=== PATIENT | female | born 1990 | race Caucasian/White ===

== ENCOUNTER 2016-08-22 20:57 | Emergency (ER) | payer OTHER ==
[~2016-08-22] VITALS: Ht 160 cm; Wt 114.0 kg
[~2016-08-22 20:57] MED LIST: BEN50 PO; CALAMINE TOP; HYDR-3011 PO; HYDR-3498 PO; IBUP-1542 PO; KENC1 TOP; OFLO5DRO7 RIGHT EAR; PRED50TA PO
[2016-08-22 21:06] VITALS: Ht 160 cm; Wt 114.0 kg
[2016-08-22] MEDS ORDERED: LIDOCAINE/MYLANTA 40 ML BTL PO STA (23:24)
[2016-08-22] MEDS ORDERED: FAMOTIDINE 20 MG TAB PO ONE (23:30)
[2016-08-23 00:30] LABS: ALBUMIN 4.7 g/dl (3.3-4.9)
[2016-08-23 00:31] LABS: POTASSIUM 4.2 mmol/L (3.5-5.1)
[2016-08-23 00:32] LABS: ADD UMIC NO; URINE BILIRUBIN (Dip) NEGATIVE (NEGATIVE); URINE BLOOD (Dip) NEGATIVE (NEGATIVE); URINE COLOR LT. YELLOW (YELLOW); URINE GLUCOSE (Dip) NEGATIVE (NEGATIVE); URINE KETONES (Dip) NEGATIVE (NEGATIVE); URINE LEUKOCYTE ESTERASE (Dip) NEGATIVE (NEGATIVE); URINE NITRITE (Dip) NEGATIVE (NEGATIVE); URINE TOTAL PROTEIN (Dip) NEGATIVE (NEGATIVE); URINE UROBILINOGEN (Dip) 0.2 E.U./dL (0.1-1.0)
[2016-08-23 00:33] LABS: ALBUMIN/GLOBULIN RATIO 1.3; BILIRUBIN,INDIRECT 0.3 mg/dl (0-1.1); BILIRUBIN,TOTAL 0.3 mg/dl (0.2-1.3); CREATININE 0.76 mg/dl (0.44-1.00); TOTAL PROTEIN 8.3 g/dl (6.1-8.1)
[2016-08-23 00:34] LABS: CALCIUM 9.3 mg/dl (8.4-10.2)
--- NOTE | 2016-08-23 01:34 | RADRPT ---
PROCEDURE: US gallbladder . CLINICAL INDICATION: Abdominal Pain TECHNIQUE: Multiple real-time images were acquired of the patient's abdomen utilizing a high resol ution transducer. COMPARISON: None FINDINGS: No gallstones are identified within the gallbladder. No gallbladder sludge. There is no pericholecystic fluid or gallbladder wall thickening. Gallbladder wall measures 3 mm. The common bile duct measures 3 mm in maximal dimension. No free fluid is identified. Right kidney measures up to 10 cm, and there is no evident renal mass, hydronephrosis retained calculus. Pancreas is not well seen secondary to overlying bowel gas. Liver measures 167 mm and there is fatty infiltration. IMPRESSION: 1. Fatty infiltration of the liver. 2. Otherwise, no acute process in the right upper quadrant. RPTAT: UU Physician Bonnie Date Time Electronically viewed and signed by Physician Bonnie on 08/23/2016 01:34 RS/
--- NOTE | 2016-08-23 01:48 | ERD ---
ER Documentation Chief Complaint Date/Time DATE: 08/23/16 TIME: 01:44 Chief Complaint diffuse abd pain x 2 days HPI The patient is a 25-year-old female here for epigastric pain and churning since she ate at [id number] 2 days ago. She states that she has mild nausea intermittently today. No vomiting. She states that she is beginning to get sick and believes she caught it from her daughter. She states that she is starting to get body aches and subjective fever. She denies chest pain, shortness of breath, difficulty breathing, dizziness, lightheadedness, change in mentation, change in gait, visual changes, international travel, smoking, vomiting, diarrhea, constipation. Her last menstrual period was 08/15/16. ROS All systems reviewed and are negative except as per history of present illness. Medications Home Meds Active Scripts Famotidine* (Pepcid*) 20 Mg Tablet, 20 MG PO BID for 4 Days, TAB Prov:NOHEMY FRIEDMAN NP 08/23/16 Acetaminophen* (Tylenol*) 325 Mg Tablet, 2 TAB PO Q6 Y for PAIN AND OR ELEVATED TEMP, #20 TAB Prov:NOHEMY FRIEDMAN NP 08/23/16 Ibuprofen* (Motrin*) 600 Mg Tab, 600 MG PO Q6, #20 TAB Prov:TRACY LYNCH PA-C 02/14/16 Hydrocodone Bit-Acetaminophen* ([place]*) 5-325 Mg Tab, 1 TAB PO Q6 Y for PAIN, # 10 TAB Prov:TRAYC LYNCH PA-C 02/14/16 Triamcinolone Acetonide* (Kenalog*) 0.1%-15GM Cr, 1 APPLIC TOP BID, #1 TUB Prov:OUMAR FLORES NP 12/19/15 Hydroxyzine Hcl* (Hydroxyzine Hcl*) 25 Mg Tablet, 25 MG PO Q8H Y for ITCHING, # 30 TAB Prov:OUMAR FLORES FURNITURE SERVICER 12/19/15 Prednisone* (Prednisone*) 50 Mg Tablet, 50 MG PO DAILY, #5 TAB Prov:OUMAR FLORES NP 12/19/15 Calamine* (Calamine*) 120 Ml Lotion, 1 APPLIC TOP Q4H for RASH, #1 EA Prov:PEBBLES THOMAS FURNITURE SERVICER 12/10/15 Diphenhydramine Hcl* (Benadryl*) 50 Mg Cap, 50 MG PO Q6H Y for ITCHING/RASH, # 30 CAP Prov:PEBBLES THOMAS. FURNITURE SERVICER 12/10/15 Ofloxacin* (Ofloxacin*) 0.3%-10 Ml Otic Drops, 10 DROP RIGHT EAR BID, #1 EA Prov:FUNMI BOYD PA-C 03/23/15 Allergies Allergies: Coded Allergies: No Known Allergy (Verified , 12/10/15) PMhx/Soc Medical and Surgical Hx: pt denies Medical Hx, pt denies Surgical Hx History of Surgery: No Anesthesia Reaction: No Hx Neurological Disorder: No Hx Respiratory Disorders: No Hx Cardiac Disorders: No Hx Psychiatric Problems: No Hx Miscellaneous Medical Probl: No Hx Alcohol Use: No Hx Substance Use: No Hx Tobacco Use: No Smoking Status: Never smoker Physical Exam Vitals Vital Signs Date Time Temp Pulse Resp B/P Pulse Ox O2 Delivery O2 Flow Rate FiO2 08/22/16 21:06 100.4 99 20 136/83 97 Physical Exam INITIAL VITAL SIGNS: Reviewed by me, low-grade fever 100.4 GENERAL: Alert. Well developed and well nourished. No acute distress. Nontoxic appearing. HEAD: Head is normocephalic. Atraumatic. EYES: EOMI. PERRL. No scleral icterus. No conjunctival injection. No clear or purulent drainage. ENT: External ears, nose, and mouth normal. Tympanic membranes without erythema , bulging, or effusion. Throat clear and without erythema or exudates. Tonsils + 2 and without erythema or exudates. Nasal passages patent and without rhinorrhea. Moist mucous membranes. NECK: Supple. Full range of motion. Trachea midline. No lymphadenopathy. No meningismus. RESPIRATORY: No tachypnea. Clear to auscultation bilaterally. No wheezing, rales , or rhonchi. CV: Regular rate and rhythm. No murmurs, rubs, or gallops ABDOMEN: Soft, non-distended, non-tender. No guarding. No rebound. No masses. Bowel sounds normal in all quadrants. BACK: No CVA tenderness. Full ROM. EXTREMITIES: No obvious deformity. No clubbing or cyanosis. No edema. SKIN: Warm and dry. No diaphoresis. No obvious rashes or lesions. NEUROLOGIC: Alert and oriented x 3. Appropriate. Face is symmetric. Speech is normal. Moves all extremities equally. Result Diagram: 08/22/160 08/22/160 Results 24 hrs Laboratory Tests Test 08/22/16 23:40 08/22/16 23:50 08/23/16 00:05 Alanine Aminotransferase (ALT/SGPT) 31IU/L Albumin 4.7g/dl Albumin/Globulin Ratio 1.30 Alkaline Phosphatase 95IU/L Anion Gap 17 Aspartate Amino Transf (AST/SGOT) 29IU/L Basophils # 0.010^3/ul Basophils % 0.2% Blood Urea Nitrogen 11mg/dl Calcium Level 9.3mg/dl Carbon Dioxide Level 28mmol/L Chloride Level 99mmol/L Creatinine 0.76mg/dl Direct Bilirubin 0.00mg/dl Eosinophils # 0.110^3/ul Eosinophils % 1.7% Globulin 3.60g/dl Glucose Level 94mg/dl Hematocrit 41.7% Hemoglobin 14.4g/dl Indirect Bilirubin 0.3mg/dl Lipase 36U/L Lymphocytes # 1.310^3/ul Lymphocytes % 20.2% Mean Corpuscular Hemoglobin 30.6pg Mean Corpuscular Hemoglobin Concent 34.5g/dl Mean Corpuscular Volume 88.5fl Mean Platelet Volume 11.1fl Monocytes # 0.410^3/ul Monocytes % 6.2% Neutrophils # 4.510^3/ul Neutrophils % 71.2% Nucleated Red Blood Cells # 0.010^3/ul Nucleated Red Blood Cells % 0.0/100WBC Platelet Count 12372^3/UL Potassium Level 4.2mmol/L Red Blood Count 4.7110^6/ul Red Cell Distribution Width 12.8% Sodium Level 140mmol/L Total Bilirubin 0.3mg/dl Total Protein 8.3g/dl White Blood Count 6.310^3/ul Urine Bilirubin NEGATIVE Urine Clarity CLEAR Urine Color LT. YELLOW Urine Glucose NEGATIVE% Urine Hemoglobin NEGATIVE Urine Ketones NEGATIVE Urine Leukocyte Esterase NEGATIVE Urine Nitrite NEGATIVE Urine Specific [place] 1.010 Urine Total Protein NEGATIVE Urine Urobilinogen 0.2 E.U./dL Urine pH 6.0 Urine Test NEGATIVE Current Medications Medications (Trade) Dose Ordered Sig/Alesia Route PRN Reason Start Time Stop Time Status Last Admin Dose Admin Famotidine (Pepcid) 20 mg ONCE ONCE PO 08/22/16 23:30 08/22/16 23:47 DC 08/23/16 00:03 Miscellaneous Medication (Gi Cocktail (2)) 40 ml ONCE STAT PO 08/22/16 23:24 08/22/16 23:47 DC 08/23/16 00:03 [place] [id number] Radiology Main Line: [phone] DIAGNOSTIC IMAGING REPORT Patient: JAYLIN FOFANA : 1990 Age: 25 Sex: F MR #: [id number] DOS: 08/23/16 2324 Ordering MD: NOHEMY FRIEDMAN NP Location: [facility] Room/Bed: PROCEDURE: US gallbladder . CLINICAL INDICATION: Abdominal Pain TECHNIQUE: Multiple real-time images were acquired of the patient's abdomen utilizing a high resolution transducer. COMPARISON: None FINDINGS: No gallstones are identified within the gallbladder. No gallbladder sludge. There is no pericholecystic fluid or gallbladder wall thickening. Gallbladder wall measures 3 mm. The common bile duct measures 3 mm in maximal dimension. No free fluid is identified. Right kidney measures up to 10 cm, and there is no evident renal mass, hydronephrosis retained calculus. Pancreas is not well seen secondary to overlying bowel gas. Liver measures 167 mm and there is fatty infiltration. IMPRESSION: 1. Fatty infiltration of the liver. 2. Otherwise, no acute process in the right upper quadrant. RPTAT: UU Physician Bonnie Date Time Electronically viewed and signed by Physician Bonnie on 08/23/2016 01:34 RS/ CC: NOHEMY FRIEDAMN NP Procedures/MDM Nursing Notes Reviewed Previous Medical Records requested via [employer]. EMERGENCY DEPARTMENT COURSE / MEDICAL DECISION MAKING: The patient comes to the ED secondary to epigastric pain and churning 2 days, and low-grade subjective fever and body aches since today. Differential diagnosis upon initial evaluation includes but is not limited to: gastritis, gastroenteritis, ileus, small bowel obstruction, constipation, pancreatitis, appendicitis, cholecystitis, urinary tract infection, diverticulitis, biliary colic, renal colic, AAA, GERD, mesenteric ischemia, pancreatitis, pneumonia, sepsis, meningitis, viral syndrome, and others The case was discussed with supervising physician Dr. Doyle. It was decided to order CBC, CMP, lipase, and gallbladder ultrasound, UA. The patient was treated with Mylanta/viscous lidocaine, Pepcid, Tylenol. On reassessment, the patient states that her abdominal pain has completely resolved along with her body aches. Her repeat physical exam was benign. Bowel sounds normal in all quadrants. Soft, nontender, nondistended, no guarding, no rebound, negative Euceda sign, no McBurney's point tenderness. Gallbladder ultrasound per radiology report: IMPRESSION: 1. Fatty infiltration of the liver. 2. Otherwise, no acute process in the right upper quadrant. CBC: no e/o of systemic infection or severe anemia. CMP: no e/o severe acidosis, alkalosis, renal failure, diabetic ketoacidosis, liver disease Lipase: no e/o pancreatitis Urine: no e/o acute infection or hematuria Urine : Negative Otherwise within normal limits, unremarkable, or as documented above. Again, reexamination the patient stated that she feels much better and wishes to be discharged home. Her repeat physical exam was benign. There is no evidence for acute surgical abdomen, sepsis, pneumonia, meningitis, or any other serious cause of her symptoms. As such, I believe she is an appropriate candidate for outpatient management and follow-up at this time. I discussed the patient's disposition and plan of care with Dr. Doyle and he agrees. Final impression: Viral syndrome Epigastric pain Based on patient's history of present illness and physical examination the decision was made to discharge. The patient was re-evaluated after ED treatment and stabilizing measures, and symptoms have improved. There is no evidence of life threatening injuries or illnesses at this time. On re-examination, patient resting in no distress, stable vital signs, reports feeling better and safe for discharge with outpatient follow up here in 8-12 hours for recheck if not completely better. Otherwise, she was given the option of following up with her primary care doctor in 1-2 days. Patient given return precautions. She verbalized understanding and agreed to return precautions. She agreed with plan of care. Patient's blood pressure was elevated but appears stable without evidence of hypertensive emergency, end organ damage, chest pain or shortness of breath. The patient was counseled about the risks of untreated hypertension and urged to pursue outpatient monitoring and therapy in 2-3 days with their primary care physician. Prescriptions Pepcid Tylenol Departure Diagnosis: Primary Impression: Epigastric pain Additional Impression: Viral syndrome Condition: Stable NOHEMY FRIEDMAN NP Aug 23, 2016 01:48
[2016-08-23 02:12] LABS: HEMATOCRIT 41.7 % (37.0-47.0); HEMOGLOBIN 14.4 g/dl (12.0-16.0); MEAN CORPUSCULAR VOLUME 88.5 fl (82.0-101.0); RED BLOOD COUNT 4.71 10^6/ul (4.20-5.40); WHITE BLOOD COUNT 6.3 10^3/ul (4.8-10.8)
[2016-08-23 02:13] LABS: BASOPHILS % 0.2 % (0.0-2.0); EOSINOPHILS # 0.1 10^3/ul (0.0-0.5); EOSINOPHILS % 1.7 % (0.0-7.0); LYMPHOCYTES # 1.3 10^3/ul (0.8-2.9); LYMPHOCYTES % 20.2 % (15.0-51.0); MEAN CORPUSCULAR HEMOGLOBIN 30.6 pg (29.0-33.0); MEAN CORPUSCULAR HGB CONC 34.5 g/dl (32.0-37.0); MEAN PLATELET VOLUME 11.1 fl (7.4-10.4); MONOCYTE # 0.4 10^3/ul (0.3-0.9); MONOCYTES % 6.2 % (0.0-11.0); NEUTROPHIL # 4.5 10^3/ul (1.6-7.5); NEUTROPHILS % 71.2 % (39.0-77.0); PLATELET COUNT 233 10^3/UL (140-440); RED CELL DISTRIBUTION WIDTH 12.8 % (11.5-14.5)
[2016-08-23] MEDS ORDERED: ACET325T33 PO (02:13)
[2016-08-23] MEDS ORDERED: FAMO-18 PO (02:13)
[2016-08-23 02:38] VITALS: BP 131/81; PULSE 98; RESP 18; TEMP 98.9
== END 2016-08-23 02:39 | disposition home or self-care (01) ==
LOC: FTE 20:57
DX: R10.13 Epigastric pain (principal); B34.9 Viral infection, unspecified
CPT/HCPCS: 36415; 76705; 80053; 81003; 83690; 84703; 85025; Z7502; Z7610

== ENCOUNTER 2017-04-19 11:13 | Emergency (ER) | payer OTHER ==
[~2017-04-19] VITALS: Ht 162.6 cm; Wt 118.5 kg
[~2017-04-19 11:13] MED LIST changes: +ACET325T33 PO; +FAMO-96 PO; -KENC1 TOP; +TRIA15CR55 TOP
[2017-04-19 11:16] VITALS: Ht 162.6 cm; Wt 118.5 kg
[2017-04-19] MEDS ORDERED: KETOROLAC 60 MG INJ IM STA (11:41)
[2017-04-19] MEDS ORDERED: IBUP800T25 PO (12:25)
--- NOTE | 2017-04-19 14:08 | ERD ---
ER Documentation Chief Complaint Date/Time DATE: 04/19/17 TIME: 13:35 Chief Complaint lower back pain & conspitation x3 days, denies painful urination, HPI 6-year-old female complaining of lower back pain 3 days. Patient stated that the pain initially started on the left lower back. She was bending over to potato picker her shoes, when she strained her back she felt a sharp shooting pain on her left side. She went to chiropractor the next day to get a massage. After that she reports her right lower back pain. She has used ibuprofen at home for pain without relief. Last dose was yesterday at 4 PM. Denies fall. Denies heavy lifting. Denies saddle paresthesia. Denies bowel bladder dysfunction. Denies radiation of the pain. ROS All systems reviewed and are negative except as per history of present illness. Medications Home Meds Active Scripts Ibuprofen* (Motrin*) 800 Mg Tab, 800 MG PO Q6H Y for PAIN AND OR ELEVATED TEMP, #30 TAB Prov:PEBBLES THOMAS TESTING SPECIALIST 04/19/17 Famotidine* (Pepcid*) 20 Mg Tablet, 20 MG PO BID for 4 Days, TAB Prov:NOHEMY FRIEDMAN NP 08/23/16 Acetaminophen* (Tylenol*) 325 Mg Tablet, 2 TAB PO Q6 Y for PAIN AND OR ELEVATED TEMP, #20 TAB Prov:NOHEMY FRIEDMAN NP 08/23/16 Ibuprofen* (Motrin*) 600 Mg Tab, 600 MG PO Q6, #20 TAB Prov:TRACY LYNCH PA-C 02/14/16 Hydrocodone Bit-Acetaminophen* ([place]*) 5-325 Mg Tab, 1 TAB PO Q6 Y for PAIN, # 10 TAB Prov:TRACY LYNCH PA-C 02/14/16 Triamcinolone Acetonide* (Kenalog*) 0.1%-15GM Cr, 1 APPLIC TOP BID, #1 TUB Prov:OUMAR FLORES TESTING SPECIALIST 12/19/15 Hydroxyzine Hcl* (Hydroxyzine Hcl*) 25 Mg Tablet, 25 MG PO Q8H Y for ITCHING, # 30 TAB Prov:OUMAR FLORES NP 12/19/15 Prednisone* (Prednisone*) 50 Mg Tablet, 50 MG PO DAILY, #5 TAB Prov:OUMAR FLORESElkin TESTING SPECIALIST 12/19/15 Calamine* (Calamine*) 120 Ml Lotion, 1 APPLIC TOP Q4H for RASH, #1 EA Prov:PEBBLES THOMAS. TESTING SPECIALIST 12/10/15 Diphenhydramine Hcl* (Benadryl*) 50 Mg Cap, 50 MG PO Q6H Y for ITCHING/RASH, # 30 CAP Prov:MARTHA,PEBBLES X. TESTING SPECIALIST 12/10/15 Ofloxacin* (Ofloxacin*) 0.3%-10 Ml Otic Drops, 10 DROP RIGHT EAR BID, #1 EA Prov:FUNMI BOYD PA-C 03/23/15 Allergies Allergies: Coded Allergies: No Known Allergy (Verified , 12/10/15) PMhx/Soc Medical and Surgical Hx: pt denies Medical Hx History of Surgery: No Anesthesia Reaction: No Hx Neurological Disorder: No Hx Respiratory Disorders: No Hx Cardiac Disorders: No Hx Psychiatric Problems: No Hx Miscellaneous Medical Probl: No Hx Alcohol Use: No Hx Substance Use: No Hx Tobacco Use: No Smoking Status: Never smoker Physical Exam Vitals Vital Signs Date Time Temp Pulse Resp B/P Pulse Ox O2 Delivery O2 Flow Rate FiO2 04/19/17 11:16 98.4 90 20 131/72 98 Physical Exam General: Well-developed, well-nourished, conscious and coherent, in no distress Skin: Warm and dry without rash, good texture and turgor Head: Normocephalic without evidence of trauma Eyes: Sclera and conjunctivae normal; pupils equal, round, and reactive to light; extraocular movements are intact Chest: Normal AP diameter. Good expansion without retractions. Nontender. Lungs are clear to auscultate bilaterally with good tidal volume Heart: Regular rate and rhythm. No murmur, rub, or gallops heard Abdomen: Soft and nontender without masses, guarding, or rebound. Bowel sounds are active. No hepatosplenomegaly Back: Without spinal or CVA tenderness. No spasm tenderness noted bilaterally at lower thoracic/upper lumbar region. Extremities: Full range of motion. Good strength bilaterally. No clubbing, cyanosis, or edema. Peripheral pulses are intact. Sensation intact Neuro: Alert and oriented 4, GCS 15. Cranial nerves grossly intact. Motor and sensory exams nonfocal. Moves all extremities. Speech clear. Gait normal Results 24 hrs Current Medications Medications (Trade) Dose Ordered Sig/Alesia Route PRN Reason Start Time Stop Time Status Last Admin Dose Admin Ketorolac Tromethamine (Toradol) 60 mg ONCE STAT IM 04/19/17 11:41 04/19/17 11:42 DC 04/19/17 11:55 Procedures/MDM 26-year-old female presented ED with bilateral back pain. Patient does not have any midline spinal tenderness. I doubt spinal fracture, subluxation, or disc herniation. I doubt spinal epidural abscess, cauda equina syndrome. She will likely had a muscle strain with subsequent muscle spasm of the back. Toradol given to the patient in the ED. Patient reports pain relief after Toradol. Patient appears well, stable for discharge and outpatient management. Medical decision making shared with patient and family. Education provided to patient and family. Patient and family expressed understanding of the plan. Medications on discharge: Ibuprofen. Follow-up: Primary care provider in 2-3 days or return to ED if worse. Disclaimer: Inadvertent spelling and grammatical errors are likely due to EHR/ dictation software use and do not reflect on the overall quality of patient care. Also, please note that the electronic time recorded on this note does not necessarily reflect the actual time of the patient encounter. Departure Diagnosis: Primary Impression: Back spasm Condition: Stable Patient Instructions: Back Sprain/Strain Additional Instructions: Call your primary care doctor TOMORROW for an appointment during the next 2-3 days.See the doctor sooner or return here if your condition worsens before your appointment time. PEBBLES THOMAS NP Apr 19, 2017 13:47
== END 2017-04-19 12:31 | disposition home or self-care (01) ==
LOC: FTE 11:13
DX: M62.830 Muscle spasm of back (principal)
CPT/HCPCS: 96372; J1885; Z7502

== ENCOUNTER 2017-06-09 10:44 | Emergency (ER) | payer OTHER ==
[~2017-06-09] VITALS: Wt 120.3 kg
[~2017-06-09 10:44] MED LIST changes: +IBUP800T25 PO
[2017-06-09] MEDS ORDERED: ACETAMINOPHEN 325 MG TAB PO ONE (11:00)
--- NOTE | 2017-06-09 11:07 | ERD ---
ER Documentation Chief Complaint Chief Complaint cough, chills, bodyaches HPI 26 year old female comes in with cough, rhinorrhea, sore throat and body aches on and off for a week. Patient has had a dry cough with clear rhinorrhea. She has not had any hemoptysis, chest pain, shortness of breath. Patient states that her has also been sick at home. Patient has been taking ibuprofen and NyQuil, DayQuil. ROS All systems reviewed and are negative except as per history of present illness. Medications Home Meds Active Scripts Ibuprofen* (Motrin*) 600 Mg Tab, 600 MG PO Q6, #30 TAB Prov:TRACY LYNCH PA-C 06/09/17 Benzonatate* (Tessalon Perle*) 100 Mg Capsule, 100 MG PO Q8H Y for COUGH, #30 CAP Prov:TRACY LYNCH PA-C 06/09/17 Azithromycin* (Zithromax*) 250 Mg Tablet, 250 MG PO .ZPACK DIRECTED, #6 TAB TAKE 500 MG (2 TABS) THE FIRST DAY THEN 250 MG (1 TAB) DAYS 2-5 Prov:TRACY LYNCH PA-C 06/09/17 Ibuprofen* (Motrin*) 800 Mg Tab, 800 MG PO Q6H Y for PAIN AND OR ELEVATED TEMP, #30 TAB Prov:PEBBLES THOMAS PRODUCTION BOW MAKER 04/19/17 Famotidine* (Pepcid*) 20 Mg Tablet, 20 MG PO BID for 4 Days, TAB Prov:NOHEMY FRIEDMAN, PRODUCTION BOW MAKER 08/23/16 Acetaminophen* (Tylenol*) 325 Mg Tablet, 2 TAB PO Q6 Y for PAIN AND OR ELEVATED TEMP, #20 TAB Prov:NOHEMY FRIEDMAN PRODUCTION BOW MAKER 08/23/16 Ibuprofen* (Motrin*) 600 Mg Tab, 600 MG PO Q6, #20 TAB Prov:TRACY LYNCH PA-C 02/14/16 Hydrocodone Bit-Acetaminophen* ([place]*) 5-325 Mg Tab, 1 TAB PO Q6 Y for PAIN, # 10 TAB Prov:TRACY LYNCH PA-C 02/14/16 Triamcinolone Acetonide* (Kenalog*) 0.1%-15GM Cr, 1 APPLIC TOP BID, #1 TUB Prov:OUMAR FLORES PRODUCTION BOW MAKER 12/19/15 Hydroxyzine Hcl* (Hydroxyzine Hcl*) 25 Mg Tablet, 25 MG PO Q8H Y for ITCHING, # 30 TAB Prov:OUMAR FLORES PRODUCTION BOW MAKER 12/19/15 Prednisone* (Prednisone*) 50 Mg Tablet, 50 MG PO DAILY, #5 TAB Prov:OUMAR FLORES PRODUCTION BOW MAKER 12/19/15 Calamine* (Calamine*) 120 Ml Lotion, 1 APPLIC TOP Q4H for RASH, #1 EA Prov:PEBBLES THOMAS. PRODUCTION BOW MAKER 12/10/15 Diphenhydramine Hcl* (Benadryl*) 50 Mg Cap, 50 MG PO Q6H Y for ITCHING/RASH, # 30 CAP Prov:PEBBLES THOMAS. PRODUCTION BOW MAKER 12/10/15 Ofloxacin* (Ofloxacin*) 0.3%-10 Ml Otic Drops, 10 DROP RIGHT EAR BID, #1 EA Prov:FUNMI BOYD PA-C 03/23/15 Allergies Allergies: Coded Allergies: No Known Allergy (Verified , 12/10/15) PMhx/Soc Medical and Surgical Hx: pt denies Medical Hx, pt denies Surgical Hx History of Surgery: No Anesthesia Reaction: No Hx Neurological Disorder: No Hx Respiratory Disorders: No Hx Cardiac Disorders: No Hx Psychiatric Problems: No Hx Miscellaneous Medical Probl: No Hx Alcohol Use: No Hx Substance Use: No Hx Tobacco Use: No Physical Exam Vitals Vital Signs Date Time Temp Pulse Resp B/P Pulse Ox O2 Delivery O2 Flow Rate FiO2 06/09/17 10:50 100.8 114 20 130/79 97 Physical Exam General: Well-developed, well-nourished. The patient appears in no acute distress. HEENT: Head is normocephalic, atraumatic. No scleral icterus. Pupils are equal , round, and reactive. Oral mucous membranes are moist. No pharyngeal erythema. TMs are normal. Neck: Supple. Nontender. Lungs: Clear to auscultation. Normal air movement. Heart: Regular rate and rhythm. S1 and S2 are normal. No murmurs, gallops, or rubs. Abdomen: Soft, nontender, nondistended. Bowel sounds are normoactive. Extremities: No clubbing or cyanosis. Normal pulses. Moving extremities x 4. No weakness. Neurologic: Alert and oriented 3. No focal deficits. Skin: Normal turgor. No rash or lesions. Results 24 hrs Current Medications Medications (Trade) Dose Ordered Sig/Alesia Route PRN Reason Start Time Stop Time Status Last Admin Dose Admin Acetaminophen (Tylenol Tab) 650 mg ONCE ONCE PO 06/09/17 11:00 06/09/17 11:01 DC 06/09/17 11:07 DIAGNOSTIC IMAGING REPORT Patient: JAYLIN FOFANA : 1990 Age: 26 Sex: F MR #: [id number] DOS: 06/09/17 1100 Ordering MD: TRACY LYNCH PA-C Location: [facility] Room/Bed: PROCEDURE: XR Chest. CLINICAL INDICATION: Cough, fever TECHNIQUE: Single portable view of the chest was obtained COMPARISON: None FINDINGS: The heart and mediastinum are within normal limits. There are low lung volumes. There are mild bibasilar atelectatic changes. The lungs are otherwise clear. There is no pleural effusion or pneumothorax. RPTAT: AA IMPRESSION: Mild bibasilar atelectatic changes. .Saul Chowdary MD, MD Date Time Electronically viewed and signed by .Saul Chowdary MD, MD on 06/09/2017 11: 20 .S/ Procedures/MDM The patient is a a 6-year-old female who comes in with an acute upper respiratory infection, his acute bronchitis. Patient was treated given her presentation of cough and fever on and off for a week and a half. Chest x-ray shows no definite pneumonia. The patient has a differential diagnosis of a viral upper respiratory infection, bacterial upper respiratory infection, bronchitis, pneumonia, pharyngitis, laryngitis, epiglottitis, croup, pneumonia. Patient has a normal pulmonary examination, clear breath sounds, normal pulse oximetry, with no corrective measures needed at this time. Fluids, rest, antipyretics were encouraged. Departure Diagnosis: Primary Impression: Cough Condition: Good TRACY LYNCH PA-C Jun 09, 2017 11:07
--- NOTE | 2017-06-09 11:21 | RADRPT ---
PROCEDURE: XR Chest. CLINICAL INDICATION: Cough, fever TECHNIQUE: Single portable view of the chest was obtained COMPARISON: None FINDINGS: The heart and mediastinum are within normal limits. There are low lung volumes. There are mild bibasilar atelectatic changes. The lungs are otherwise clear. There is no pleural effusion or pneumothorax. RPTAT: AA IMPRESSION: Mild bibasilar atelectatic changes. .Saul Chowdary MD, MD Date Time Electronically viewed and signed by .Saul Chowdary MD, on 06/09/2017 11:20 .S/
[2017-06-09] MEDS ORDERED: IBUP-1542 PO (11:35)
[2017-06-09] MEDS ORDERED: BENZ100C70 PO (11:35)
[2017-06-09] MEDS ORDERED: AZIT250T94 PO (11:35)
== END 2017-06-09 11:57 | disposition home or self-care (01) ==
LOC: FTE 10:44
DX: J06.9 Acute upper respiratory infection, unspecified (principal)
CPT/HCPCS: 71010; Z7502; Z7610

== ENCOUNTER 2017-09-29 01:38 | Emergency (ER) | END 2017-09-29 04:56 | disposition left against medical advice (07) ==

== ENCOUNTER 2018-02-10 18:29 | Emergency (ER) | END 2018-02-10 20:43 | disposition home or self-care (01) ==

== ENCOUNTER 2018-02-11 13:09 | Emergency (ER) | END 2018-02-11 17:15 | disposition home or self-care (01) ==